=== PATIENT | male | born 1950 | race Caucasian/White ===

== ENCOUNTER 2022-03-07 18:27 | Inpatient (IN) | payer MEDICARE, MEDICAID ==
[~2022-03-07] VITALS: Ht 160 cm; Wt 66.4 kg
[2022-03-07] MEDS ORDERED: DEXTROSE 50% WATER 50ML SYRINGE IV ONE (19:00)
[2022-03-07] MEDS ORDERED: INSULIN REGULAR (HUMULIN R) 300UNITS/3ML VIAL IV ONE (19:00)
[2022-03-07] MEDS ORDERED: SODIUM CHLORIDE 0.9% 1,000 ML IV ONE ×2 (19:00)
[2022-03-07] MEDS: ALBUTEROL (0.083%) 2.5MG/3ML NEB HHN SCH ×3 (19:00→21:55)
[2022-03-07] MEDS ORDERED: CALCIUM CHLORIDE 1,000 MG in DEXT 5% WATER 100 ML IV ONE (19:00)
[2022-03-07 19:17] LABS: BG BASE EXCESS -1.8 mmol/L (-2.0-2.0); BG CARBOXYHEMOGLOBIN 0.8 % (0.5-1.5); BG DEOXYHEMOGLOBIN 2.1 % (0.0-5.0); BG FRACTION INSPIRED OXYGEN 21; BG HCO3 ACT 21.8 mmol/L (22.0-26.0); BG METHEMOGLOBIN 0.4 % (0.0-1.5); BG OXYGEN SATURATION 97.9 % (92.0-98.5); BG OXYHEMOGLOBIN 96.7 % (94.0-97.0); BG PCO2 33.4 mmHg (35.0-45.0); BG PH 7.432 (7.350-7.450); BG PO2 104.8 mmHg (75.0-100.0); BG SAMPLE SITE RIGHT BRACHIAL; BG TOTAL HEMOGLOBIN 13.5 g/dL (12.0-18.0); BG VENT MODE ROOM AIR
[2022-03-07 19:38] LABS: BASOPHILS % 0.3 % (0.0-2.0); EOSINOPHILS % 1.6 % (0.0-5.0); HEMATOCRIT. 44.2 % (42.0-52.0); LYMPHOCYTES % 20.6 % (20.0-50.0); MEAN CORPUSCULAR VOLUME 102.8 fL (80.0-94.0); MEAN PLATELET VOLUME 11.1 fl (7.4-10.4); MONOCYTES % 5.2 % (2.0-8.0); NEUTROPHILS % 72.3 % (40.0-76.0); PLATELET 186 x1000/uL (130-400); RED CELL DISTRIBUTION WIDTH 14.7 % (11.6-14.6)
[2022-03-07 19:48] LABS: CHLORIDE 91 mEq/L (98-107)
[2022-03-07 19:58] LABS: ETHANOL BLOOD < 10 mg/dL; PHOSPHORUS 6.8 mg/dL (2.5-4.9)
[2022-03-07] MEDS ORDERED: SODIUM BICARBONATE 8.4% 1 MEQ/ML 50ML SYR IV ONE (20:30)
[2022-03-07] MEDS ORDERED: FUROSEMIDE 100MG/10ML VIAL IV ONE (20:30)
[2022-03-07] MEDS ORDERED: INSULIN REGULAR (DRIP) 100 UNITS in SODIUM CHLORIDE 0.9% 99 ML IV SCH (20:30)
[2022-03-07] MEDS ORDERED: INSULIN REGULAR 100U/100ML PMX 100 ML IV SCH (20:45)
[2022-03-07] MEDS ORDERED: DEXT 5%/LACTATED RINGERS 1,000 ML IV ONE (22:45)
[2022-03-08] VITALS (9 sets, daily range): BP systolic 155–203; BP diastolic 54–90
[2022-03-08] MEDS ORDERED: ONDANSETRON HCL 4MG/2ML INJ IV PRN (09:15)
[2022-03-08] MEDS: NIFEDIPINE XL 60MG TAB PO SCH (09:15)
[2022-03-08] MEDS ORDERED: ACETAMINOPHEN 325MG TABLET PO PRN (09:15)
[2022-03-08] MEDS ORDERED: DEXTROSE 50% WATER 50ML SYRINGE IV PRN (09:15)
[2022-03-08] MEDS: INSULIN GLARGINE 100 UNITS/ML SUBCUT SCH ×2 (12:26→22:09)
[2022-03-08] MEDS: BLOOD SUGAR DIAGNOSTIC STRIP TEST SCH ×3 (13:00→21:00)
[2022-03-08 14:02] LABS: HEPATITIS B SURFACE ANTIGEN NEGATIVE
[2022-03-08] MEDS ORDERED: HYDRALAZINE HCL 100MG TABLET PO NR (14:30)
[2022-03-08] MEDS: INSULIN LISPRO 100 UNITS/ML SUBCUT SCH ×2 (17:00→21:00)
[2022-03-08] MEDS ORDERED: FOLI-43 MT (17:05)
[2022-03-08] MEDS ORDERED: ASPI-1497 MT (17:05)
[2022-03-08] MEDS ORDERED: AMLO2.5T45 MT (17:05)
[2022-03-08] MEDS ORDERED: HYDR100T26 PO (17:05)
[2022-03-08] MEDS ORDERED: METO-396 PO (17:05)
[2022-03-08] MEDS ORDERED: OMEP20CA14 MT (17:05)
[2022-03-08] MEDS: LOSARTAN POTASSIUM 100 MG TABLET PO SCH (17:54)
[2022-03-08] MEDS: HYDRALAZINE HCL 100MG TABLET PO SCH (22:05)
[2022-03-09] VITALS (13 sets, daily range): BP systolic 115–165; BP diastolic 46–67
[2022-03-09] MEDS: HYDRALAZINE HCL 100MG TABLET PO SCH ×2 (06:00→15:23)
[2022-03-09] MEDS: INSULIN LISPRO 100 UNITS/ML SUBCUT SCH ×3 (06:38→16:46)
[2022-03-09] MEDS: BLOOD SUGAR DIAGNOSTIC STRIP TEST SCH ×3 (06:38→16:40)
[2022-03-09 06:56] LABS: BASOPHILS % 0.5 % (0.0-2.0); EOSINOPHILS % 1.5 % (0.0-5.0); HEMATOCRIT. 42.1 % (42.0-52.0); HEMOGLOBIN. 14.2 g/dL (14.0-18.0); LYMPHOCYTES % 10.3 % (20.0-50.0); MEAN CORPUSCULAR HEMOGLOBIN 34.2 pg (28.0-32.0); MEAN CORPUSCULAR VOLUME 101.6 fL (80.0-94.0); MEAN PLATELET VOLUME 10.8 fl (7.4-10.4); MONOCYTES % 4.7 % (2.0-8.0); PLATELET 166 x1000/uL (130-400); RED BLOOD CELL COUNT 4.15 mill/uL (4.7-6.1); RED CELL DISTRIBUTION WIDTH 14.6 % (11.6-14.6)
[2022-03-09] MEDS: LOSARTAN POTASSIUM 100 MG TABLET PO SCH (08:08)
[2022-03-09] MEDS: NIFEDIPINE XL 60MG TAB PO SCH (08:08)
== END 2022-03-09 16:30 | disposition home or self-care (01) | DRG 640 ==
LOC: ER 18:27 → 7EST 20:51 → EDBEDREQSVC 03-08 08:01
PROVIDERS: ADMIT Internal Medicine; ATTEND Internal Medicine
PROC: 5A1D70Z Performance of Urinary Filtration, Intermittent, Less than 6 Hours Per Day (ICD-10-PCS; principal; 2022-03-08)
PROC: 5A1D70Z Performance of Urinary Filtration, Intermittent, Less than 6 Hours Per Day (ICD-10-PCS; 2022-03-09)
DX: E87.5 Hyperkalemia (principal); N18.6 End stage renal disease; I12.0 Hypertensive chronic kidney disease with stage 5 chronic kidney disease or end stage renal disease; E11.65 Type 2 diabetes mellitus with hyperglycemia; E87.1 Hypo-osmolality and hyponatremia; E11.22 Type 2 diabetes mellitus with diabetic chronic kidney disease; Z20.822 Contact with and (suspected) exposure to COVID-19; D63.8 Anemia in other chronic diseases classified elsewhere; Z99.2 Dependence on renal dialysis
CPT/HCPCS: 36415; 36600; 71045; 80048; 80053; 80320; 82010; 82375; 82805; 82962; 83036; 83735; 83880; 84100; 84484; 85025; 86705; 86709; 86803; 87340; 87426; 87804; 90935; 93005; 94640; 99291; J1815; J1940; J3490; J7030; J7050; J7060; J7121; G0480